=== PATIENT | male | born 1955 | race Caucasian/White ===

== ENCOUNTER 2019-08-24 18:18 | Emergency (ER) | payer BC ==
[~2019-08-24] VITALS: Ht 167.6 cm; Wt 72.6 kg
[2019-08-24 18:25] VITALS: BP 130/67
== END 2019-08-24 19:19 | disposition home or self-care (01) ==
LOC: M.ERS 18:18
DX: S61.213A Laceration without foreign body of left middle finger without damage to nail, initial encounter (principal); S61.211A Laceration without foreign body of left index finger without damage to nail, initial encounter; Z90.49 Acquired absence of other specified parts of digestive tract; W26.8XXA Contact with other sharp object(s), not elsewhere classified, initial encounter; Y93.89 Activity, other specified; Y92.89 Other specified places as the place of occurrence of the external cause; Y99.8 Other external cause status

== ENCOUNTER → 2019-09-06 | Emergency (ER) | payer BC ==
[~2019-09-06] VITALS: Ht 167.6 cm; Wt 74.8 kg
[2019-09-06 17:04] VITALS: BP 164/79
== END ==
LOC: M.ERS 16:59
DX: S61.213D Laceration without foreign body of left middle finger without damage to nail, subsequent encounter (principal); S61.215D Laceration without foreign body of left ring finger without damage to nail, subsequent encounter; Z90.49 Acquired absence of other specified parts of digestive tract; X58.XXXD Exposure to other specified factors, subsequent encounter